=== PATIENT | male | born 1995 | race Caucasian/White ===

== ENCOUNTER 2018-12-11 18:35 | Emergency (ER) | payer OTHER ==
[~2018-12-11] VITALS: Ht 175.3 cm; Wt 89.4 kg
[2018-12-11] MEDS ORDERED: APAP325T4 PO (18:41)
[2018-12-11] MEDS ORDERED: MIRA3350 PO (21:14)
[2018-12-11] MEDS ORDERED: LIDO1CRE2 EX (21:14)
[2018-12-11] MEDS ORDERED: LIDOCAINE 4% CREAM 5GM (LMX4) TOP ONE (21:15)
[2018-12-11 21:38] VITALS: BP 136/84
== END 2018-12-11 21:44 | disposition home or self-care (01) ==
LOC: M ED 18:35
DX: K64.4 Residual hemorrhoidal skin tags (principal); F17.210 Nicotine dependence, cigarettes, uncomplicated